=== PATIENT | female | born 1980 | race Caucasian/White ===

== ENCOUNTER 2022-04-15 13:23 | Outpatient (CLI) | payer BC | END 2022-04-15 13:24 | disposition home or self-care (01) | LOC: CSHMAMMO 13:23 | PROVIDERS: ATTEND Obstetrics & Gynecology | DX: Z12.31 Encounter for screening mammogram for malignant neoplasm of breast (principal); N63.20 Unspecified lump in the left breast, unspecified quadrant; Z98.82 Breast implant status | CPT/HCPCS: 77063; 77067 ==